=== PATIENT | female | born 2000 | race Caucasian/White ===

== ENCOUNTER 2023-04-28 15:49 | Emergency (ER) | payer OTHER ==
[2023-04-28 15:56] VITALS: BP 125/81; PULSE 118; RESP 19; TEMP 98.2; BMI 24.4
== END 2023-04-28 16:50 | disposition home or self-care (01) ==
LOC: JERFT 15:49
DX: S62.101A Fracture of unspecified carpal bone, right wrist, initial encounter for closed fracture (principal); W19.XXXA Unspecified fall, initial encounter
CPT/HCPCS: 99282-25